=== PATIENT | female | born 1990 | race Caucasian/White ===

== ENCOUNTER 2016-12-15 15:30 | Emergency (ER) | payer SELFPAY ==
[~2016-12-15] VITALS: Ht 160 cm; Wt 56.8 kg
[2016-12-15 15:58] VITALS: BP 142/98
[2016-12-15] MEDS ORDERED: NACL 0.9% 1,000 ML IV SCH (16:19)
[2016-12-15] MEDS ORDERED: ONDANSETRON 4 MG/2 ML VIAL IVP ONE (16:20)
[2016-12-15] MEDS ORDERED: HYDROmorphone 1 MG/ML AMP IVP ONE (16:20)
[2016-12-15] MEDS ORDERED: FAMOTIDINE 20 MG/2 ML VIAL IVP ONE (16:20)
--- NOTE | 2016-12-15 16:24 | NUR ---
Patient was taken to bed 04 via wheelchair per nurse.
--- NOTE | 2016-12-15 16:30 | NUR ---
PATIENT PRESENTS TO ED WITH C/O RLQ PAIN X 1430HRS TODAY WITH NAUSEA AND VOMITING--- DENIES DYSURIA--TENDER TO RIGHT FLANK AND RLQ SHARP PAIN HX---RIGHT OVARY REMOVAL RX--DENIES DENIES DIARRHEA; SKIN IS PINK/WARM/DRY; AAOX4 WITH EVEN AND STEADY GAIT; LUNGS CLEAR BL; HR EVEN AND REGULAR; PT DENIES ANY FEVER, CP, SOB, OR COUGH AT THIS TIME; PATIENT STATES PAIN OF 10/10 AT THIS TIME; VSS; PATIENT POSITIONED FOR COMFORT; HOB ELEVATED; BEDRAILS UP X2; BED DOWN. ER MD MADE AWARE OF PT STATUS.
[2016-12-15] MEDS ORDERED: NACL 0.9% 1,000 ML IV ONE (17:40)
--- NOTE | 2016-12-15 18:43 | NUR ---
Patient going to CT via wheelchair per tech.
--- NOTE | 2016-12-15 18:59 | NUR ---
Patient back from CT via wheelchair per tech.
--- NOTE | 2016-12-15 19:13 | NUR ---
GOT REPORT FROM BYRON MEYER. PT. RESTING IN BED, NO S/SX OF DISTRESS AT THIS TIME.
--- NOTE | 2016-12-15 20:30 | NUR ---
Patient discharged with v/s stable. Written and verbal after care instructions given and explained. Patient alert, oriented and verbalized understanding of instructions. Ambulatory with steady gait. All questions addressed prior to discharge. ID band removed. Patient advised to follow up with PMD. Rx of MOTRIN 800 MG, ZOFRAN ODT 4 MG given. Patient educated on indication of medication including possible reaction and side effects. Opportunity to ask questions provided and answered.
[2016-12-15 20:52] VITALS: BP 139/79
== END 2016-12-15 20:30 | disposition home or self-care (01) ==
LOC: MED 15:30
DX: N83.202 Unspecified ovarian cyst, left side (principal)
CPT/HCPCS: 36415; 74177; 80053; 81001; 81025; 82150; 83690; 85025; 87086; 96361; 96374; 96375; 99285; J1170; J2405; J3490; J7030; Q9967